=== PATIENT | male | born 1995 | race Caucasian/White ===

== ENCOUNTER 2022-02-23 11:38 | Emergency (ER) | payer OTHER ==
[2022-02-23] MEDS ORDERED: Ketorolac 30 MG/ML SDV IM STA (12:17)
== END 2022-02-23 12:55 | disposition home or self-care (01) ==
LOC: MW.ED 11:38
DX: M54.16 Radiculopathy, lumbar region (principal)
CPT/HCPCS: 96372; 99283; J1885